=== PATIENT | male | born 1955 | race Caucasian/White ===

== ENCOUNTER 2019-10-06 13:05 | Emergency (ER) | payer BC, OTHER ==
[2019-10-06 13:45] VITALS: BP 143/70
[2019-10-06] MEDS ORDERED: Acetaminophen TAB* 325 MG PO ONE (14:04)
--- NOTE | 2019-10-06 14:16 | UC ---
Complaint Male HPI - HPI Summary HPI Summary: 64 yo male with the onset of right testicular pain and swelling which started on 10/04 later develped dysuria and fever/chills no n/v/d mild headache mild myalgias - History of Current Complaint Chief Complaint: UCGU Stated Complaint: FEVER, PAINFULL URINATION Time Seen by Provider: 10/06/19 13:41 Hx Obtained From: Patient Onset/Duration: Gradual Onset, Lasting Days Timing: Constant Severity Initially: Severe Severity Currently: Mild Pain Intensity: 2 Pain Scale Used: 0-10 Numeric Location: Testicle - R Character: Sharp Aggravating Factor(s): Voiding Associated Signs And Symptoms: Positive: Fever, Dysuria. Negative: Diaphoresis , Back Pain, Hematuria, Constipation, Blood in Stool, Rectal Pain, Appetite, Nausea, Vomiting(# Of Episodes =), Penile Swelling, Penile Discharge - Risk Factors Testicular Torsion: Negative - Allergies/Home Medications Allergies/Adverse Reactions: Allergies Allergy/AdvReac Type Severity Reaction Status Date / Time No Known Allergies Allergy Verified 10/06/19 13:45 Home Medications: Home Medications Ibuprofen TAB* [Motrin TAB* 400 MG] 400 mg PO Q6H PRN 10/06/19 [History Confirmed 10/06/19] PMH/Surg Hx/FS Hx/Imm Hx Previously Healthy: Yes GI/ History: Other Other GI/ History: febrile UTI in past (treated as out patient) - Surgical History Surgical History: None - Social History Alcohol Use: None Substance Use Type: None Smoking Status (MU): Never Smoked Tobacco Review of Systems All Other Systems Reviewed And Are Negative: Yes Constitutional: Positive: Fever, Chills, Fatigue Skin: Positive: Negative Eyes: Positive: Negative ENT: Positive: Negative Respiratory: Positive: Negative Cardiovascular: Positive: Negative Gastrointestinal: Positive: Negative Genitourinary: Positive: Frequency, Urgency, Other - right testicular pain swelling Motor: Positive: Negative Neurovascular: Positive: Negative Musculoskeletal: Positive: Negative Neurological: Positive: Negative Psychological: Positive: Negative Physical Exam Triage Information Reviewed: Yes Appearance: Well-Appearing, No Pain Distress, Well-Nourished, Other: - ill but not septic appearing Vital Signs: Initial Vital Signs Temp 103.6 F 10/06/19 13:37 Pulse 77 10/06/19 13:37 Resp 16 10/06/19 13:37 BP 143/70 10/06/19 13:37 Pulse Ox 100 10/06/19 13:37 Vital Signs Reviewed: Yes Eyes: Positive: Conjunctiva Clear ENT: Positive: Hearing grossly normal, Uvula midline. Negative: Nasal congestion, Nasal drainage, Trismus, Muffled voice, Hoarse voice Dental Exam: Normal Neck: Positive: Supple, Nontender, No Lymphadenopathy Respiratory: Positive: Lungs clear, Normal breath sounds, No respiratory distress, No accessory muscle use Cardiovascular: Positive: RRR, No Murmur Abdomen Description: Positive: Nontender, No Organomegaly, Soft. Negative: CVA Tenderness (R), CVA Tenderness (L) Bowel Sounds: Positive: Present Male Genital Exam: Positive: Other - swollen/red rigth hemscrotum/enlarged and tender right testicle/and epidydymis/testicle not high riding Musculoskeletal: Positive: ROM Intact, No Edema Complaint Male Course/Dx - Course Course Of Treatment: UA ++ leuks/++ RBCs - Differential Dx/Diagnosis Provider Diagnosis: Orchitis of right testicle, Febrile urinary tract infection Discharge ED - Sign-Out/Discharge Documenting (check all that apply): Patient Departure All imaging exams completed and their final reports reviewed: No Studies - Discharge Plan Condition: Stable Disposition: HOME Referrals: Gibson Christianson MD [Primary Care Provider] - Additional Instructions: please go to the ER for investigation of your symptoms - Billing Disposition and Condition Condition: STABLE Disposition: Home
--- NOTE | 2019-10-08 17:38 | UC ---
- Progress Note Progress Note: 10/08/2019 Urine culture preliminary: positive for E.Coli. Pt Rx Levaquin PO at the ER. Final sensitivity reports still pending. No change Jason Montanez PA-C Course/Dx - Diagnoses Provider Diagnoses: Orchitis of right testicle, Febrile urinary tract infection Discharge ED - Sign-Out/Discharge Documenting (check all that apply): Post-Discharge Follow Up All imaging exams completed and their final reports reviewed: No Studies - Discharge Plan Condition: Stable Disposition: HOME Referrals: Gibson Christianson MD [Primary Care Provider] - Additional Instructions: please go to the ER for investigation of your symptoms - Billing Disposition and Condition Condition: STABLE Disposition: Home
== END 2019-10-06 14:12 | disposition home or self-care (01) ==
LOC: UCEAST 13:05
DX: N45.2 Orchitis (principal); N39.0 Urinary tract infection, site not specified; R50.9 Fever, unspecified; N45.1 Epididymitis; N43.3 Hydrocele, unspecified
CPT/HCPCS: 81003; 87077; 87086; 87186; 99212; A9270-GY; G0463

== ENCOUNTER 2019-10-06 14:34 | Emergency (ER) | payer BC ==
[2019-10-06] MEDS ORDERED: NS 0.9% 1000 ML** 1,000 ML IV ONE ×2 (15:25→15:51)
[2019-10-06] MEDS ORDERED: Ketorolac INJ* 30 MG/ML 1 ML VIAL IV PUSH ONE (15:25)
--- NOTE | 2019-10-06 15:27 | ED ---
GI/ HPI - HPI Summary HPI Summary: This patient is a 64 year old male presenting to [facility] with a chief complaint of right testicular pain since 2 nights ago. He reports fever between 101-103 F. He was seen at [facility] and sent here for ultrasound. He denies dysuria. - History of Current Complaint Chief Complaint: EDUrogenitalProblems Time Seen by Provider: 10/06/19 15:17 Stated Complaint: RT TESTICLE SWELLING PER PT Hx Obtained From: Patient Onset/Duration: Started Hours Ago Timing: Lasting Hours Pain Intensity: 96 Additional Locations for Males: Testicles - Allergy/Home Medications Allergies/Adverse Reactions: Allergies Allergy/AdvReac Type Severity Reaction Status Date / Time No Known Allergies Allergy Verified 10/06/19 13:45 PMH/Surg Hx/FS Hx/Imm Hx Endocrine/Hematology History: Denies: Hx Diabetes Cardiovascular History: Denies: Hx Coronary Artery Disease Infectious Disease History: No Infectious Disease History: Denies: Traveled Outside the [place] in Last 30 Days - Family History Known Family History: Negative: Renal Disease - Social History Alcohol Use: None Substance Use Type: Reports: None Smoking Status (MU): Never Smoked Tobacco Review of Systems Positive: Fever Positive: pain - Right testicle . Negative: dysuria All Other Systems Reviewed And Are Negative: Yes Physical Exam - Summary Physical Exam Summary: Constitutional: Well-developed, Well-nourished, Alert. (-) Distressed Skin: Warm, Dry HENT: Normocephalic; Atraumatic Eyes: Conjunctiva normal Neck: Musculoskeletal ROM normal neck. (-) JVD, (-) Stridor, (-) Tracheal deviation Cardio: Rhythm regular, rate normal, Heart sounds normal; Intact distal pulses; Radial pulses are 2+ and symmetric. (-) Murmur Pulmonary/Chest wall: Effort normal. (-) Respiratory distress, (-) Wheezes, (-) Rales Abd: Soft, (-) tenderness, (-) Distension, (-) Guarding, (-) Rebound Musculoskeletal: (-) Edema Lymph: (-) Cervical adenopathy Neuro: Alert, Oriented x3 Psych: Mood and affect Normal GIGU: Swollen right hemiscrotum. No scrotal erythema. Right testicle tender to palpation. Triage Information Reviewed: Yes Vital Signs On Initial Exam: Initial Vitals Temp Pulse Resp BP Pulse Ox 101.2 F 81 18 114/59 98 02/01/20 14:37 10/06/19 14:37 10/06/19 14:37 10/06/19 14:37 10/06/19 14:37 Vital Signs Reviewed: Yes Procedures - Sedation Patient Received Moderate/Deep Sedation with Procedure: No Diagnostics - Vital Signs Vital Signs Temp Pulse Resp BP Pulse Ox 10/06/19 14:37 101.2 F 81 18 114/59 98 - Laboratory Result Diagrams: 10/06/19 15:34 10/06/19 15:34 Lab Statement: Any lab studies that have been ordered have been reviewed, and results considered in the medical decision making process. GIGU Course/Dx - Course Course Of Treatment: This patient is a 64 year old male presenting to [facility] with a chief complaint of right testicular pain since 2 nights ago. Testicular US reveals small left and large right scrotal hydroceles and right epididymitis. Patient was given 2L NS, Toradol and Zosyn. Patient prescribed Levaquin for home. Plan for discharge was discussed with the patient and he was agreeable with this plan. - Diagnoses Provider Diagnoses: Epididymitis Discharge ED - Sign-Out/Discharge Documenting (check all that apply): Patient Departure - Discharge - Discharge Plan Condition: Stable Disposition: HOME Prescriptions: Levofloxacin TAB* [Levaquin TAB*] 500 mg PO DAILY #10 tab Patient Education Materials: Epididymitis (ED) Referrals: Gibson Christianson MD [Primary Care Provider] - 2 Days Additional Instructions: Return to ED with new or worsening symptoms. - Billing Disposition and Condition Condition: STABLE Disposition: Home - Attestation Statements Document Initiated by Kellie: Yes Documenting Scribe: Marvin Chin Provider For Whom Kellie is Documenting (Include Credential): Jovanni Lai DO Scribe Attestation: IMarvin, scribed for Jovanni Lai DO on 10/06/19 at 2016. Scribe Documentation Reviewed: Yes Provider Attestation: The documentation as recorded by the Marvin douglas accurately reflects the service I personally performed and the decisions made by me, Jovanni Lai DO Status of Scribe Document: Viewed
[2019-10-06 15:47] LABS: ABS Basophils 0.1 10^3/ul (0-0.2); ABS Lymphocytes 0.6 10^3/ul (1.0-4.8); ABS Monocytes 1.2 10^3/ul (0-0.8); ABS Neutrophils 11.7 10^3/ul (1.5-7.7); Eosinophil % 0.1 %; Hematocrit 38 % (42-52); Hemoglobin 12.7 g/dL (14.0-18.0); Lymphocyte % 4.3 %; Mean Corpuscular HGB Conc 34 g/dL (31-36); Mean Corpuscular Hemoglobin 30 pg (27-31); Mean Corpuscular Volume 89 fL (80-94); Platelet Count 199 10^3/uL (150-450); Red Blood Count 4.24 10^6 /uL (4.18-5.48); Red Cell Distribution Width 14 % (10-15); White Blood Count 13.6 10^3/uL (3.5-10.8)
[2019-10-06] MEDS ORDERED: Piperacillin/Tazobac ADVAN(*) 3.375 GM in NS 0.9% 100 ML* 100 ML IVPB ONE (15:51)
[2019-10-06 15:57] LABS: BUN/Creatinine Ratio 16.8 (8-20); Calcium 8.3 mg/dL (8.6-10.3); EGFR African American 74.7 (>60); EGFR Non-African American 61.7 (>60); Potassium 4.1 mmol/L (3.5-5.0)
[2019-10-06 16:21] LABS: Albumin 3.6 g/dL (3.2-5.2); Albumin/Globulin Ratio 1.4 (1-3); Globulin 2.5 g/dL (2-4); Indirect Bilirubin 0.5 mg/dL (0.3-1.0); Total Bilirubin 0.7 mg/dL (0.2-1.0); Total Protein 6.1 g/dL (6.4-8.9)
[2019-10-06 17:17] LABS: Urine Appearance Cloudy; Urine Bilirubin Negative (Negative); Urine Blood 2+ (Negative); Urine Color Yellow; Urine Glucose Negative (Negative); Urine Ketones Negative (Negative); Urine Nitrite Negative (Negative); Urine Protein Negative (Negative); Urine Specific Gravity 1.006 (1.010-1.030); Urine Urobilinogen Negative (Negative)
[2019-10-06 17:20] LABS: Urine Bacteria 1+ (Absent); Urine Red Blood Cell 1+(3-5/hpf) (Absent); Urine White Blood Cell 3+(>20/hpf) (Absent)
[2019-10-06 21:35] VITALS: BP 114/66
== END 2019-10-06 21:34 | disposition home or self-care (01) ==
LOC: ED 14:34
DX: N45.1 Epididymitis (principal); N43.3 Hydrocele, unspecified
CPT/HCPCS: 36415; 76870; 80048; 80076; 81003; 81015; 83605; 85025; 87040; 96361; 96365; 96375; 99283; J1885; J2543